=== PATIENT | female | born 1975 | race American Indian/Alaskan Native ===

== ENCOUNTER 2018-02-16 11:04 | Observation (INO) | payer BC ==
[2018-02-16] MEDS ORDERED: Aspirin 325 mg EC Tablets PO STA (12:46)
[2018-02-16] MEDS ORDERED: Aspirin 325 mg EC Tablets PO ONE (12:55)
[2018-02-16 13:02] LABS: SQUAMOUS EPITHIAL 3 /hpf (0-5); URINE BILIRUBIN NEGATIVE (NEGATIVE); URINE BLOOD NEGATIVE (NEGATIVE); URINE CLARITY Clear (Clear); URINE COLOR Straw (YELLOW); URINE GLUCOSE (UA) 3+ mg/dL (Normal); URINE LEUKOCYTE ESTERASE NEG Leu/uL (Negative); URINE PROTEIN 2+ mg/dL (NEGATIVE); URINE UROBILINOGEN NORMAL mg/dL (0.2-1.0)
--- NOTE | 2018-02-16 13:02 | C.PDOC ---
History Of Present Illness 42yo female, with history of hypertension (good compliance with medication), poor diabetes control due to diet, presents to ER for evaluation of dyspnea on exertion, and increasing pedal edema over the past couple days. She states her maximum weight was 230lbs and now is down to 190lbs. She denies any fever, chills, chest pain, and offers no other medical complaints. PMD: Dr. Ruby Time Seen by Provider: 02/16/18 12:37 Chief Complaint (Nursing): Dizziness/Lightheaded History Per: Patient History/Exam Limitations: no limitations Onset/Duration Of Symptoms: Days Current Symptoms Are (Timing): Still Present Past Medical History Reviewed: Historical Data, Nursing Documentation, Vital Signs Vital Signs: Last Vital Signs Temp 98.4 F 02/16/18 12:00 Pulse 93 H 02/16/18 14:00 Resp 12 02/16/18 14:00 BP 177/94 H 02/16/18 14:00 Pulse Ox 100 02/16/18 14:00 - Medical History PMH: Diabetes, HTN Denies: CHF Surgical History: No Surg Hx Family History: States: No Known Family Hx - Social History Hx Alcohol Use: No Hx Substance Use: No - Immunization History Hx Tetanus Toxoid Vaccination: Yes Hx Influenza Vaccination: Yes Hx Pneumococcal Vaccination: No Review Of Systems Except As Marked, All Systems Reviewed And Found Negative. Constitutional: Negative for: Fever, Chills Cardiovascular: Negative for: Chest Pain Respiratory: Positive for: SOB with Excertion Musculoskeletal: Positive for: Other (pedal edema) Physical Exam - Physical Exam Appears: Non-toxic, No Acute Distress Skin: Normal Color, Warm, Dry Head: Atraumatic, Normacephalic Eye(s): bilateral: Normal Inspection Neck: Normal ROM, Supple Chest: Symmetrical Cardiovascular: Rhythm Regular, JVD Respiratory: Rales Gastrointestinal/Abdominal: Soft, No Tenderness Back: Normal Inspection Extremity: Normal ROM, Pedal Edema (2/4 pitting edema bilateral lower extremities), No Deformity Neurological/Psych: Oriented x3 ED Course And Treatment - Laboratory Results Result Diagrams: 02/16/18 13:12 02/16/18 13:12 Lab Interpretation: Abnormal (+ elev glu) Urine POC: Negative ECG: Interpreted By Me ECG Rhythm: Sinus Rhythm ECG Interpretation: Normal Rate From EC O2 Sat by Pulse Oximetry: 100 (RA) Pulse Ox Interpretation: Normal - Radiology CXR: Interpreted by Me CXR Interpretation: Yes: Heart Size (+ megaly), Other (+CHF) Progress Note: lasix, insulin Reevaluation Time: 15:15 Reassessment Condition: Improved - Physician Consult Information Outcome Of Conversation: 1430: d/w Dr. Wray- [facility]- ok to admit. Medical Decision Making Medical Decision Making: Impression: SOB on exertion Plan: -- Labs -- CXR -- UDS -- Apsirin 325mg PO -- Lasix 20mg IVP Disposition Doctor Will See Patient In The: Hospital Counseled Patient/Family Regarding: Studies Performed, Diagnosis - Disposition Disposition: HOSPITALIZED Disposition Time: 15:16 Condition: GOOD - Clinical Impression Clinical Impression: Congestive heart failure, Uncontrolled diabetes mellitus - Scribe Statement The provider has reviewed the documentation as recorded by the Scribe (Georgina Conrad) Provider Attestation: All medical record entries made by the Scribe were at my direction and personally dictated by me. I have reviewed the chart and agree that the record accurately reflects my personal performance of the history, physical exam, medical decision making, and the department course for this patient. I have also personally directed, reviewed, and agree with the discharge instructions and disposition.
[2018-02-16 13:04] LABS: HCG,QUALITATIVE URINE NEGATIVE (NEGATIVE)
[2018-02-16 13:17] LABS: BASO # 0.1 K/uL (0.0-0.2); BASO % 2.4 % (0.0-2.0); EOS # 0.1 K/uL (0.0-0.7); EOS % 1.6 % (0.0-4.0); HEMOGLOBIN 12.4 g/dL (11.0-16.0); LYMPH # 2.3 K/uL (1.0-4.3); LYMPH % 36.3 % (20.0-40.0); MEAN CELL VOLUME 97.3 fL (81.0-99.0); MEAN CORPUSCULAR HEMOGLOBIN 34.1 pg (27.0-31.0); MEAN PLATELET VOLUME 9.8 fL (7.2-11.7); MONO # 0.4 K/uL (0.0-0.8); MONO % 7.2 % (0.0-10.0); NEUT # 3.3 K/uL (1.8-7.0); NEUT % 52.5 % (50.0-75.0); RBC 3.64 Mil/uL (3.80-5.20); RED CELL DISTRIBUTION WIDTH 12.6 % (11.5-14.5); WHITE BLOOD COUNT 6.2 K/uL (4.8-10.8)
[2018-02-16 13:30] LABS: ALB/GLOB RATIO 0.9 (1.0-2.1); ALBUMIN 3.3 g/dL (3.5-5.0); ALT/SGPT 10 U/L (9-52); AST/SGOT 15 U/L (14-36); BLOOD UREA NITROGEN 15 mg/dL (7-17); CALCIUM 8.8 mg/dl (8.6-10.4); GFR AFRICAN-AMERICAN > 60; GFR NON-AFRICAN AMERICAN > 60
[2018-02-16 13:31] LABS: D DIMER < 200 ng/mlDDU (0-243); INR 0.9; PARTIAL THROMBOPLASTIN TIME 29 SECONDS (21-34); PROTHROMBIN TIME 9.8 SECONDS (9.7-12.2)
--- NOTE | 2018-02-16 13:32 | RAD ---
PROCEDURE: CHEST RADIOGRAPH, 1 VIEW HISTORY: SOB COMPARISON: None available. FINDINGS: LUNGS: Prominence of the pulmonary vasculature may be secondary to AP technique and/or pulmonary vascular congestion. PLEURA: No pneumothorax or pleural fluid seen. CARDIOVASCULAR: Atherosclerotic aortic calcifications. Cardiomediastinal silhouette prominent. OSSEOUS STRUCTURES: No significant abnormalities. VISUALIZED UPPER ABDOMEN: Normal. OTHER FINDINGS: None. IMPRESSION: Prominence of the pulmonary vasculature may be secondary to AP technique and/or pulmonary vascular congestion. No focal consolidation or pleural effusion.
[2018-02-16 13:46] LABS: BARBITURATES, UR NEGATIVE (NEGATIVE); BENZODIAZEPINES, UR NEGATIVE (NEGATIVE); OPIATES, UR NEGATIVE (NEGATIVE); PHENCYCLIDINE, UR NEGATIVE (NEGATIVE)
[2018-02-16 13:55] LABS: B-TYPE NATRIURETIC PEPTIDE 84.2 pg/mL (0-450)
[2018-02-16] MEDS ORDERED: (Novolin R) Insulin Human Regular 100 units/ml vial IV STA (14:05)
[2018-02-16] MEDS ORDERED: (Novolin R) Insulin Human Regular 100 units/ml vial ONE (14:30)
[2018-02-16 20:27] LABS: CK-MB 3.02 ng/mL (0.0-3.38)
[2018-02-16 20:33] LABS: TROPONIN I 0.022 ng/mL (0.00-0.120)
[2018-02-16] MEDS: (Novolin R) Insulin Human Regular 100 units/ml vial SC SCH (21:43)
[2018-02-17 07:38] LABS: CK-MB 0.58 ng/mL (0.0-3.38); TROPONIN I 0.012 ng/mL (0.00-0.120)
[2018-02-17] MEDS: (Novolin R) Insulin Human Regular 100 units/ml vial SC SCH ×4 (08:16→21:19)
[2018-02-17] MEDS: (Novolog Mix 70/30) Insulin Aspart/Insulin Aspar 100 units/ml SC SCH ×2 (09:04→18:30)
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
[2018-02-17] MEDS: Enoxaparin 40 mg Syringe SC SCH (09:06)
[2018-02-17] MEDS ORDERED: Metoprolol Succinate 12.5 mg XL PO SCH (10:00)
[2018-02-17] MEDS ORDERED: Insulin Detemir 100 units/ml Vial (Levemir) SC SCH (10:00)
--- NOTE | 2018-02-17 12:05 | US ---
PROCEDURE: Ultrasound of the Kidneys HISTORY: pain COMPARISON: None available. TECHNIQUE: Sonogram of the kidneys. FINDINGS: RIGHT KIDNEY: Measures: 12.5 cm. Normal in size, contour and echogenicity. No stone, solid mass lesion or hydronephrosis visualized. LEFT KIDNEY: Measures: 12.3 cm. Normal in size, contour and echogenicity. No stone, solid mass lesion or hydronephrosis visualized. OTHER FINDINGS: None. IMPRESSION: Unremarkable renal sonogram.
--- NOTE | 2018-02-17 12:28 | CARD ---
APPROVED REPORT EKG Measurement Heart [id number] <Conclusion> Normal sinus rhythm Possible Left atrial enlargement Possible Anterior infarct, age undetermined Abnormal ECG
[2018-02-17] MEDS ORDERED: Metoprolol Succinate 12.5 mg XL PO ONE (18:00)
[2018-02-17 20:12] LABS: CK-MB 0.54 ng/mL (0.0-3.38); TROPONIN I 0.015 ng/mL (0.00-0.120)
--- NOTE | 2018-02-18 01:04 | CP.PCM.PN ---
Subjective - Date & Time of Evaluation Date of Evaluation: 02/17/18 Time of Evaluation: 20:00 - Subjective Subjective: Pt seen and examined at [facility] Objective - Vital Signs/Intake and Output Vital Signs (last 24 hours): Temp Pulse Resp BP Pulse Ox 98.8 F 83 81 H 144/91 H 98 02/17/18 15:18 02/17/18 23:30 02/17/18 16:08 02/17/18 16:08 02/17/18 15:18 Intake and Output: 02/17/18 02/18/18 18:59 06:59 Intake Total 400 500 Balance 400 500 - Medications Medications: Current Medications Amlodipine Besylate (Norvasc) 10 mg PO DAILY [facility] Last Admin: 02/17/18 09:03 Dose: 10 mg Enoxaparin Sodium (Lovenox) 40 mg SC DAILY [facility] Last Admin: 02/17/18 09:06 Dose: 40 mg Furosemide (Lasix) 40 mg IVP DAILY [facility] Last Admin: 02/17/18 09:03 Dose: 40 mg Hydrochlorothiazide (Microzide) 12.5 mg PO DAILY [facility] Last Admin: 02/17/18 09:03 Dose: 12.5 mg Insulin Aspart (Novolog Mix 70/30 (70/30 Units/Ml)) 22 units SC BID [facility] Last Admin: 02/17/18 18:30 Dose: 22 units Insulin Human Regular (Novolin R) 0 unit SC ACHS [facility] PRN Reason: Protocol Last Admin: 02/17/18 21:19 Dose: Not Given Losartan Potassium (Cozaar) 100 mg PO DAILY [facility] Last Admin: 02/17/18 09:03 Dose: 100 mg Metoprolol Succinate (Toprol Xl) 25 mg PO DAILY [facility] Pneumococcal Polyvalent Vaccine (Pneumovax 23 Vaccine) 0.5 ml IM .ONCE ONE Stop: 02/18/18 10:01 Rosuvastatin Calcium (Crestor) 5 mg PO HS [facility] Last Admin: 02/17/18 21:18 Dose: 5 mg - Labs Labs: 02/16/18 13:12 02/16/18 13:12 PT 9.8 SECONDS (9.7-12.2) 02/16/18 13:12 INR 0.9 02/16/18 13:12 APTT 29 SECONDS (21-34) 02/16/18 13:12
[2018-02-18 07:29] LABS: BLOOD UREA NITROGEN 14 mg/dL (7-17); CALCIUM 8.5 mg/dl (8.6-10.4); GFR AFRICAN-AMERICAN > 60; GFR NON-AFRICAN AMERICAN > 60
[2018-02-18 07:32] LABS: BASO % 0.3 % (0.0-2.0); EOS # 0.2 K/uL (0.0-0.7); EOS % 2.4 % (0.0-4.0); HEMOGLOBIN 12.4 g/dL (11.0-16.0); LYMPH % 46.6 % (20.0-40.0); MEAN CORPUSCULAR HEMOGLOBIN 33.2 pg (27.0-31.0); MEAN CORPUSCULAR HGB CONC 34.3 g/dL (33.0-37.0); MONO # 0.4 K/uL (0.0-0.8); MONO % 6.9 % (0.0-10.0); NEUT # 2.8 K/uL (1.8-7.0); NEUT % 43.8 % (50.0-75.0); RBC 3.73 Mil/uL (3.80-5.20); RED CELL DISTRIBUTION WIDTH 12.4 % (11.5-14.5); WHITE BLOOD COUNT 6.4 K/uL (4.8-10.8)
[2018-02-18] MEDS: (Novolin R) Insulin Human Regular 100 units/ml vial SC SCH ×3 (07:53→17:42)
[2018-02-18 09:13] VITALS: RESP 20
[2018-02-18] MEDS ORDERED: Metoprolol Succinate 25 mg XL Tab PO SCH (10:00)
[2018-02-18] MEDS ORDERED: Pneumococcal 23-Valent Vaccine IM ONE (10:00)
[2018-02-18] MEDS: Enoxaparin 40 mg Syringe SC SCH (10:19)
[2018-02-18] MEDS: (Novolog Mix 70/30) Insulin Aspart/Insulin Aspar 100 units/ml SC SCH ×2 (10:21→17:42)
--- NOTE | 2018-02-18 11:50 | CARD ---
APPROVED REPORT EXAM: Two-dimensional and M-mode echocardiogram with Doppler and color Doppler. INDICATION Dyspnea Congestive Heart Failure RISK FACTORS Hypertension Diabetes 2D DIMENSIONS IVSd1.2 (0.7-1.1cm)LVDd4.6 (3.9-5.9cm) PWd1.2 (0.7-1.1cm)LVDs3.1 (2.5-4.0cm) FS (%) 31.3 %LVEF (%)59.1 (>50%) M-Mode DIMENSIONS Left Atrium (MM)4.07 (2.5-4.0cm)Aortic Root3.15 (2.2-3.7cm) Aortic Cusp Exc.2.17 (1.5-2.0cm) Mitral Valve MV E Bvbuevmr34.1cm/sMV A Gkcughow91.7cm/sE/A ratio1.0 TDI E/Lateral E'0.0E/Medial E'0.0 Tricuspid Valve TR Peak [id number]/sTR Peak [id number] LEFT VENTRICLE The left ventricle is normal size. There is mild concentric left ventricular hypertrophy. The left ventricular function is normal. The left ventricular ejection fraction is within the normal range. There is normal LV segmental wall motion. The left ventricular diastolic function is normal. No left ventricle thrombus noted on this study. There is no ventricular septal defect visualized. There is no left ventricular aneurysm. There is no mass noted in the left ventricle. RIGHT VENTRICLE The right ventricle is normal size. There is normal right ventricular wall thickness. The right ventricular systolic function is normal. ATRIA The left atrium is borderline dilated. The right atrium size is normal. The interatrial septum is intact with no evidence for an atrial septal defect. AORTIC VALVE The aortic valve is normal in structure. No aortic regurgitation is present. There is no aortic valvular stenosis. There is no aortic valvular vegetation. MITRAL VALVE The mitral valve is normal in structure. There is no mitral valve stenosis. There is no mitral valve regurgitation noted. TRICUSPID VALVE The tricuspid valve is normal in structure. There is no tricuspid valve regurgitation noted. PULMONIC VALVE The pulmonary valve is normal in structure. There is no pulmonic valvular regurgitation. GREAT VESSELS The aortic root is normal in size. The ascending aorta is normal in size. The pulmonary artery is normal. The IVC is normal in size and collapses >50% with inspiration. PERICARDIAL EFFUSION There is no pericardial effusion. <Conclusion> There is mild concentric left ventricular hypertrophy. The left atrium is borderline dilated. LVEF IS 65%.
[2018-02-18 16:04] VITALS: BP 150/100; PULSE 84; TEMP 98.9; O2SAT 100
[2018-02-18] MEDS ORDERED: POLYETHYLENE GLYCOL 3350 17 GM/Dose PACKET PO ONE (16:26)
--- NOTE | 2018-02-18 23:34 | CP.PCM.DIS ---
Provider - Provider Date of Admission: 02/16/18 14:25 Attending physician: Jose De Jesus Wray MD Time Spent in preparation of Discharge (in minutes): 45 Hospital Course - Lab Results Lab Results: Most Recent Lab Values WBC 6.4 K/uL (4.8-10.8) 02/18/18 07:03 RBC 3.73 Mil/uL (3.80-5.20) L 02/18/18 07:03 Hgb 12.4 g/dL (11.0-16.0) 02/18/18 07:03 Hct 36.2 % (34.0-47.0) 02/18/18 07:03 MCV 97.0 fL (81.0-99.0) 02/18/18 07:03 MCH 33.2 pg (27.0-31.0) H 02/18/18 07:03 MCHC 34.3 g/dL (33.0-37.0) 02/18/18 07:03 RDW 12.4 % (11.5-14.5) 02/18/18 07:03 Plt Count 230 K/uL (130-400) 02/18/18 07:03 MPV 10.0 fL (7.2-11.7) 02/18/18 07:03 Neut % (Auto) 43.8 % (50.0-75.0) L 02/18/18 07:03 Lymph % (Auto) 46.6 % (20.0-40.0) H 02/18/18 07:03 [place] % (Auto) 6.9 % (0.0-10.0) 02/18/18 07:03 Eos % (Auto) 2.4 % (0.0-4.0) 02/18/18 07:03 Baso % (Auto) 0.3 % (0.0-2.0) 02/18/18 07:03 Neut # (Auto) 2.8 K/uL (1.8-7.0) 02/18/18 07:03 Lymph # (Auto) 3.0 K/uL (1.0-4.3) 02/18/18 07:03 [place] # (Auto) 0.4 K/uL (0.0-0.8) 02/18/18 07:03 Eos # (Auto) 0.2 K/uL (0.0-0.7) 02/18/18 07:03 Baso # (Auto) 0.0 K/uL (0.0-0.2) 02/18/18 07:03 PT 9.8 SECONDS (9.7-12.2) 02/16/18 13:12 INR 0.9 02/16/18 13:12 APTT 29 SECONDS (21-34) 02/16/18 13:12 D-Dimer, Quantitative < 200 ng/mlDDU (0-243) 02/16/18 13:12 Sodium 138 mmol/L (132-148) 02/18/18 07:03 Potassium 3.7 mmol/L (3.6-5.2) 02/18/18 07:03 Chloride 101 mmol/L (98-107) 02/18/18 07:03 Carbon Dioxide 31 mmol/L (22-30) H 02/18/18 07:03 Anion Gap 10 (10-20) 02/18/18 07:03 BUN 14 mg/dL (7-17) 02/18/18 07:03 Creatinine 0.6 mg/dL (0.7-1.2) L 02/18/18 07:03 Est GFR ( Amer) > 60 02/18/18 07:03 Est GFR (Non-Af Amer) > 60 02/18/18 07:03 POC Glucose (mg/dL) 238 mg/dL (65-110) H 02/18/18 16:35 Random Glucose 110 mg/dL (65-105) H 02/18/18 07:03 Hemoglobin A1c 12.9 % (4.2-6.5) H 02/18/18 07:03 Calcium 8.5 mg/dl (8.6-10.4) L 02/18/18 07:03 Total Bilirubin 0.3 mg/dL (0.2-1.3) 02/16/18 13:12 AST 15 U/L (14-36) 02/16/18 13:12 ALT 10 U/L (9-52) 02/16/18 13:12 Alkaline Phosphatase 70 U/L (38-126) 02/16/18 13:12 Total Creatine Kinase 86 U/L (30-135) 02/17/18 19:41 CK-MB (Mass) 0.54 ng/mL (0.0-3.38) 02/17/18 19:41 Troponin I 0.0150 ng/mL (0.00-0.120) 02/17/18 19:41 NT-Pro-B Natriuret Pep 84.2 pg/mL (0-450) 02/16/18 13:12 Total Protein 6.7 g/dL (6.3-8.3) 02/16/18 13:12 Albumin 3.3 g/dL (3.5-5.0) L 02/16/18 13:12 Globulin 3.4 gm/dL (2.2-3.9) 02/16/18 13:12 Albumin/Globulin Ratio 0.9 (1.0-2.1) L 02/16/18 13:12 Urine Color Straw (YELLOW) 02/16/18 12:53 Urine Clarity Clear (Clear) 02/16/18 12:53 Urine pH 7.0 (5.0-8.0) 02/16/18 12:53 Ur Specific [place] 1.015 (1.003-1.030) 02/16/18 12:53 Urine Protein 2+ mg/dL (NEGATIVE) H 02/16/18 12:53 Urine Glucose (UA) 3+ mg/dL (Normal) H 02/16/18 12:53 Urine Ketones Negative mg/dL (NEGATIVE) 02/16/18 12:53 Urine Blood Negative (NEGATIVE) 02/16/18 12:53 Urine Nitrate Negative (NEGATIVE) 02/16/18 12:53 Urine Bilirubin Negative (NEGATIVE) 02/16/18 12:53 Urine Urobilinogen Normal mg/dL (0.2-1.0) 02/16/18 12:53 Ur Leukocyte Esterase Neg [place]/uL (Negative) 02/16/18 12:53 Urine WBC (Auto) < 1 /hpf (0-5) 02/16/18 12:53 Urine RBC (Auto) 1 /hpf (0-3) 02/16/18 12:53 Ur Squamous Epith Cells 3 /hpf (0-5) 02/16/18 12:53 Urine HCG, Qual Negative (NEGATIVE) 02/16/18 12:53 Urine Opiates Screen Negative (NEGATIVE) 02/16/18 13:12 Urine Methadone Screen Negative (NEGATIVE) 02/16/18 13:12 Ur Barbiturates Screen Negative (NEGATIVE) 02/16/18 13:12 Ur Phencyclidine Scrn Negative (NEGATIVE) 02/16/18 13:12 Ur Amphetamines Screen Negative (NEGATIVE) 02/16/18 13:12 U Benzodiazepines Scrn Negative (NEGATIVE) 02/16/18 13:12 U Oth Cocaine Metabols Negative (NEGATIVE) 02/16/18 13:12 U Cannabinoids Screen Negative (NEGATIVE) 02/16/18 13:12 - Hospital Course Hospital Course: Pt seen and examined is for discharge today Discharge Plan - Follow Up Plan Condition: GOOD Disposition: HOME/ ROUTINE Instructions: Heart Failure, Adult (DC), Diabetes Type 2 (DC) Additional Instructions: Follow up w/ Dr. Wray in 1 wk Prescriptions given
== END 2018-02-18 20:41 | disposition home or self-care (01) ==
LOC: C.ER 11:04 → C.6T 14:25 → C.9E 14:25
PROVIDERS: ADMIT Internal Medicine; ATTEND Internal Medicine
DX: I11.0 Hypertensive heart disease with heart failure (principal); I50.9 Heart failure, unspecified; E11.65 Type 2 diabetes mellitus with hyperglycemia; Z79.4 Long term (current) use of insulin
CPT/HCPCS: 36415; 71045; 76770; 80048; 80053; 81001; 82948; 83036; 83880; 84484; 84703; 85025; 85378; 85610; 85730; 90732; 93005; 93306; 96374; 99285; G0009; G0378; G0480; J1650; J1940